=== PATIENT | female | born 1985 | race Two or more races ===

== ENCOUNTER 2017-12-09 22:43 | Inpatient (IN) | payer OTHER ==
[~2017-12-09] VITALS: Ht 160 cm; Wt 94.3 kg
[2017-12-09] MEDS ORDERED: ALDOMET250 MG PO (23:22)
[2017-12-12] MEDS ORDERED: TOPROL XL25 M1 PO (09:51)
== END 2017-12-12 13:33 | disposition home or self-care (01) | DRG 775 ==
LOC: LDR 22:43 → OB/GYN 22:43
PROC: 10E0XZZ Delivery of Products of Conception, External Approach (ICD-10-PCS; principal; 2017-12-10)
PROC: 0HQ9XZZ Repair Perineum Skin, External Approach (ICD-10-PCS; 2017-12-10)
PROC: 3E033VJ Introduction of Other Hormone into Peripheral Vein, Percutaneous Approach (ICD-10-PCS; 2017-12-10)
PROC: 4A1HXCZ Monitoring of Products of Conception, Cardiac Rate, External Approach (ICD-10-PCS; 2017-12-10)
DX: O70.0 First degree perineal laceration during delivery (principal); O69.81X0 Labor and delivery complicated by cord around neck, without compression, not applicable or unspecified; O13.4 Gestational [pregnancy-induced] hypertension without significant proteinuria, complicating childbirth; Z3A.39 39 weeks gestation of pregnancy; Z37.0 Single live birth